=== PATIENT | male | born 1995 ===

== ENCOUNTER 2023-06-21 11:28 | Emergency (ER) | payer SELFPAY ==
[2023-06-21 11:34] VITALS: BP 132/100; PULSE 72; RESP 16; TEMP 37; O2SAT 99
[2023-06-21 11:41] VITALS: BP 132/100; PULSE 72; RESP 16; TEMP 37; O2SAT 99
--- NOTE | 2023-06-21 11:44 | ED.GENADUL_ITS ---
Discharge Plan Disposition Patient Disposition: Home Condition: Stable Discharge Details Clinical Impression: Elevated LFTs, Diarrhea, N&V (nausea and vomiting), Influenza B Primary Care Provider: None,None ED Provider: Raul Altamirano Home Meds and New Rx's Prescriptions: New ondansetron 4 mg tablet,disintegrating 4 mg PO Q8H PRN (Reason: nausea and vomiting) Qty: 30 0RF Discharge Instructions Additional Instructions: You are positive for the flu which explains your symptoms you are having. This resolves by itself without any treatment. You should follow-up with your primary care provider and have your liver function test rechecked. If you feel more ill, have persistent vomiting or severe abdominal pain return to the emergency department for evaluation HPI General Mode of arrival: ambulatory . Date/Time Provider Initiated Documentation: 06/21/23 11:32 . Limitations to Documentation: no limitations . Information obtained by: patient . History of Present Illness 28 year old M presents to the emergency department with the chief complaint of n/v/d, described as moderate, Patient started experiencing this day(s) (6) and it has been intermittent. No relieving factors improve symptom(s), No exacerbating factors reported . Patient notes denies chest pain and shortness of breath. Patient did receive the following treatments prior to arrival, none Related Data Home Medications Medication Instructions Recorded Confirmed ondansetron 4 mg disintegrating 4 mg PO Q8H PRN nausea and 06/21/23 tablet vomiting #30 tabs Previous Rx's Medication Instructions Recorded ondansetron 4 mg disintegrating 4 mg PO Q8H PRN nausea and 06/21/23 tablet vomiting #30 tabs Allergies Allergy/AdvReac Type Severity Reaction Status Date / Time No Known Allergies Allergy Unverified 06/21/23 11:34 General Stated Complaint: Abd Prob NITISH: 4 Review of Systems All systems reviewed & are unremarkable except as noted in HPI and below Constitutional Constitutional: Denies chills, Denies fever(s) and Denies weakness Cardiovascular Cardiovascular: Denies chest pain and Denies dyspnea Respiratory Respiratory: Denies cough and Denies dyspnea Gastrointestinal Gastrointestinal: Denies abdominal pain, Reports diarrhea, Reports nausea and Reports vomiting Musculoskeletal Musculoskeletal: Denies joint swelling Neurologic Neurologic: Denies weakness Exam Const General: no acute distress Orientation: alert HENMT Head: normal to inspection Ears: external ears normal General nose exam: external nose normal Mouth: moist mucous membranes Eyes General: appearance normal, both eyes and all related structures Neck Neck: normal visual inspection Resp Effort & Inspection: normal respiratory effort and able to speak in complete sentences Cardio Rate: regular rate GI Palpation: soft and nontender Skin General skin exam: no rashes or lesions noted Neuro General: patient alert and patient oriented x3 Extrem General: normal to inspection Psych Mental Status: mental status grossly normal Course Vital Signs Vital signs: Vital Signs Temperature 37.0 C 06/21/23 11:34 Pulse 72 06/21/23 11:34 Respiratory Rate 16 06/21/23 11:34 Blood Pressure 132/100 H 06/21/23 11:34 Pulse Oximetry 99 06/21/23 11:34 Temperature 37.0 C 06/21/23 11:41 Temperature Source Temporal Artery Scan 06/21/23 11:41 Pulse 72 06/21/23 11:41 Respiratory Rate 16 06/21/23 11:41 Respiratory Effort Normal, Non-Labored 06/21/23 11:39 Blood Pressure 132/100 H 06/21/23 11:41 Blood Pressure Position Sitting 06/21/23 11:41 Pulse Oximetry 99 06/21/23 11:41 Oxygen Delivery Method Room Air 06/21/23 11:41 Oxygen Flow Rate 0 06/21/23 11:41 Pain Level 0 06/21/23 11:41 Medical Decision Making 28-year-old male who denies any significant past medical history comes in with 6 days of diarrhea, chills, and nausea and vomiting. Denies any chest pain, difficulty breathing, abdominal pain, no recent travel or sick contacts. He is alert and oriented on arrival appears well and ambulating with a normal gait unassisted. He has a soft nontender abdomen. Denies any blood in his stools. Suspect gastroenteritis versus food illness or sensitivity, will check for electrolyte abnormalities and treat his symptoms with fluids and Zofran and reassess. Given lack of abdominal pain and no tenderness on exam do not feel any imaging at this time is indicated Labs show mild low white count, LFTs mildly elevated likely from a viral gastroenteritis, still has no abdominal pain and no right upper quadrant tenderness so do not feel any acute imaging of his gallbladder or liver indicated. Patient stable, is positive for the flu which fits with this presentation. He is stable for discharge, advised to follow-up with his primary care provider and return precautions given. Stool studies canceled given patient is positive for flu Differential Diagnosis Differential Diagnosis: Viral gastroenteritis, food illness Lab Data Lab results reviewed: Yes I reviewed the patient's lab results. Quality:SDOH Health Related Social Needs: No Data to Display PFSH All Active Problems (Updated 06/21/23 @ 13:15 by Raul Altamirano MD) Influenza B (Acute) N&V (nausea and vomiting) (Acute) Diarrhea (Acute) Elevated LFTs (Acute) Social History Smoking/Tobacco Use Status: Never Smoking risk assessment performed?: Yes Alcohol Intake: current Alcohol Intake frequency: holidays/special occasions only Alcohol type: beer Drug use: Never Substance use type: does not use Housing: apartment Do you feel safe at home: Yes Do you feel safe in your relationship?: Yes
[2023-06-21] MEDS: Normal Saline 1,000 ML 1000 ML IV (12:03)
[2023-06-21 12:08] LABS: Abs Immature Grans 0.02 10^3/uL (0.0-0.06); Absolute Basophil Count 0.04 10^3/uL (0.0-0.2); HGB 14.2 g/dL (13.5-17.5); MCH 31.4 pg (27.0-33.0); MCHC 33.8 % (32.0-36.0); MCV 93 fL (80-95); MPV 11.1 fL (8.0-11.0); Platelet Count 208 10^3/uL (130-400); RBC 4.52 10^6/uL (4.36-5.78); RDW 12.3 % (11.8-14.1); RDW-SD 42.3 fL; WBC 4.28 10^3/uL (4.4-10.8)
[2023-06-21] MEDS: Ondansetron 4 MG/2 ML VIAL IVP (12:09)
[2023-06-21 12:21] LABS: ALT 198 U/L (16-63); AST 173 U/L (15-37); Alkaline Phosphatase 98 U/L (46-116); Anion Gap 14.6 mmol/L (3-11); BUN 7 mg/dL (7-18); Bilirubin, Total 1.2 mg/dL (0.2-1.0); CO2 21.4 mmol/L (21.0-32.0); CREATININE 1.1 mg/dL (0.70-1.30); Calcium 9.2 mg/dL (8.5-10.1); Chloride 99 mmol/L (98-107); Estimated GFR 93.19 (mL/min/1.73m2); Glucose 113 mg/dL (74-106); Lipase 20 U/L (16-77); Magnesium 1.9 mg/dL (1.8-2.4); Potassium 4.2 mmol/L (3.5-5.1); Sodium 135 mmol/L (136-145); Total Protein 8.2 g/dL (6.4-8.2)
[2023-06-21 12:28] LABS: Absolute Eosinophil Count 0.04 10^3/uL (0.0-0.7); Absolute Monocyte Count 0.34 10^3/uL (0.1-0.8); Absolute Neutrophil Count 2.35 10^3/uL (1.2-6.7); Atypical Lymphocytes % 3; Diff Comment Manual Differential; RBC Morphology Normal
[2023-06-21 13:07] LABS: COVID-19 PCR Negative (Negative); Influenza A PCR Negative (Negative); Influenza B PCR Positive (Negative); RSV PCR Negative (Negative)
[2023-06-21 13:08] LABS: Source Nasopharynx
[2023-06-21 13:34] VITALS: BP 132/98; PULSE 62; RESP 13; O2SAT 100
[2023-06-23 12:05] LABS: Hepatitis A Antibody IgM Negative (Negative); Hepatitis B Core Antibody Negative (Negative); Hepatitis B surface Ag Negative (Negative); Hepatitis C Ab w Rflx HCV PCR Negative (Negative)
== END 2023-06-21 13:37 | disposition home or self-care (01) ==
PROVIDERS: Emergency Provider Emergency Medicine
DX: J10.1 Influenza due to other identified influenza virus with other respiratory manifestations (principal); R79.89 Other specified abnormal findings of blood chemistry; R19.7 Diarrhea, unspecified
CPT/HCPCS: 36415; 80053; 83690; 86704; 86709; 86803; 87340; 87637; 96361; 96374; 99284; 83735; 85025; J2405

== ENCOUNTER 2023-07-14 08:14 | Emergency (ER) | payer SELFPAY ==
[2023-07-14 08:17] VITALS: BP 147/82; PULSE 84; RESP 16; TEMP 36.6; O2SAT 100
--- NOTE | 2023-07-14 08:30 | W.ED.GENAD ---
Discharge Plan Disposition Patient Disposition: Home Condition: Good Discharge Details Clinical Impression: Herpes genitalis in men, Recurrent genital herpes Primary Care Provider: Unknown,Unknown ED Provider: Jayleen Yuan Home Meds and New Rx's Prescriptions: New valacyclovir 1 gram tablet 1,000 mg PO DAILY Qty: 30 0RF acyclovir 400 mg tablet 800 mg PO TID Qty: 30 0RF Rx Instructions: Please take two tabs three times daily for two days Continued ondansetron 4 mg tablet,disintegrating 4 mg PO Q8H PRN (Reason: nausea and vomiting) Qty: 30 0RF valacyclovir 500 mg tablet 500 mg PO BID valacyclovir 1 gram tablet 1,000 mg PO TID Discharge Instructions Instructions: Genital Herpes Simplex (ED) Additional Instructions: Your exam is most consistent with recurrent genital herpes outbreak. I prescribed you 2 different antivirals. Some of this is based off of coupons that was able to find, these are attached. Please take the acyclovir for the next 3 days as prescribed for your acute exacerbation. For chronic suppression, I am putting you back on your valacyclovir that you had previously been on. There is no need for you to take these medications together. Please only use the acyclovir during your outbreak and go back to the valacyclovir once this has been suppressed as prescribed. Please encourage hydration. Tylenol and ibuprofen as needed for discomfort. Please monitor for signs of infection including redness, warmth, drainage, increased pain, fever/chills. If you develop these or other new/worsening symptom please seek care urgently once again. Attached is Information for community connections, they will help you with insurance and local support options. They are located across the street, address and contact information on packet. I have also referred you to local primary care, you should hear from care management to establish care. 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 HPI General Date/Time Provider Initiated Documentation: 07/14/23 08:16. Limitations to Documentation: no limitations. Information obtained by: patient and RN notes reviewed. History of Present Illness 28 year old M presents to the emergency department with the chief complaint of recurrent genital herpes outbreak, described as moderate and similar to prior episodes, Quality is described as burning, and is localized to the genitals. Patient reports no radiation. Patient started experiencing this day(s) (2) and it has been constant. No relieving factors improve symptom(s), No exacerbating factors reported (ran out of suppression medication) . Patient notes no other symptoms.. Patient did receive the following treatments prior to arrival, none Related Data Home Medications Medication Instructions Recorded Confirmed ondansetron 4 mg disintegrating 4 mg PO Q8H PRN nausea and 06/21/23 07/14/23 tablet vomiting #30 tabs acyclovir 400 mg tablet 800 mg (2 x 400 mg) PO TID #30 tabs 07/14/23 valacyclovir 1 gram tablet 1,000 mg PO DAILY #30 tabs 07/14/23 valacyclovir 1 gram tablet 1,000 mg PO TID 07/14/23 07/14/23 valacyclovir 500 mg tablet 500 mg PO BID 07/14/23 07/14/23 Previous Rx's Medication Instructions Recorded ondansetron 4 mg disintegrating 4 mg PO Q8H PRN nausea and 06/21/23 tablet vomiting #30 tabs acyclovir 400 mg tablet 800 mg (2 x 400 mg) PO TID #30 tabs 07/14/23 valacyclovir 1 gram tablet 1,000 mg PO DAILY #30 tabs 07/14/23 Allergies Allergy/AdvReac Type Severity Reaction Status Date / Time No Known Allergies Allergy Unverified 07/14/23 08:19 General Stated Complaint: RX Refill NITISH: 5 Review of Systems Constitutional Constitutional: Reports as per HPI, Denies chills and Denies fever(s) Genitourinary Genitourinary: Reports as per HPI Musculoskeletal Musculoskeletal: Reports as per HPI Integumentary/Breasts Skin/Breast: Reports as per HPI Exam Const General: cooperative, healthy appearing, comfortable, no acute distress and well developed Nutritional Appearance: average body habitus and well nourished Orientation: alert and awake Resp Effort & Inspection: normal respiratory effort, able to speak in complete sentences and no respiratory distress Cardio Rate: regular rate Rhythm: regular rhythm Male genitals images: 1. Area of clustered herpetic lesions. No surrounding erythema, warmth, drainage. No other lesions noted. uncircumcised. Skin Lesions: lesion noted (herpetic lesions noted right side of penis) Neuro General: patient alert and patient awake Cognition: normal cognition Speech: speech normal Gait: normal gait Psych Appearance: grossly normal and well kempt Mental Status: mental status grossly normal Speech and Movement: speech and movement normal Course Vital Signs Vital signs: Vital Signs Temperature 36.6 C 07/14/23 08:17 Pulse 84 07/14/23 08:17 Respiratory Rate 16 07/14/23 08:17 Blood Pressure 147/82 H 07/14/23 08:17 Pulse Oximetry 100 07/14/23 08:17 Temperature 36.6 C 07/14/23 08:17 Temperature Source Skin 07/14/23 08:17 Pulse 84 07/14/23 08:17 Respiratory Rate 16 07/14/23 08:17 Respiratory Effort Normal, Non-Labored 07/14/23 08:21 Blood Pressure 147/82 H 07/14/23 08:17 Blood Pressure Position Sitting 07/14/23 08:17 Pulse Oximetry 100 07/14/23 08:17 Oxygen Delivery Method Room Air 07/14/23 08:17 Oxygen Flow Rate 0 07/14/23 08:17 Pain Level 8 07/14/23 08:17 Medical Decision Making Patient is a pleasant 28-year-old male presenting today with chief complaint of recurrent genital herpes. He has had this for several years, was previously prescribed valacyclovir for suppression therapy. He recently ran out of this. Patient is new to the area, moved here about a month ago from [place]. Has not yet established local primary care, does not have insurance currently. He reports that a few days ago he began having a recurrent outbreak. States that it has the same appearance and feel as previous outbreaks. He is concerned that he will continue to have these. He denies any fevers or chills. No discharge. No change in bowel or bladder habits. Denies any pain elsewhere. Otherwise feeling well. On exam, patient appears nontoxic. Resting comfortably no acute distress. He has a small cluster of herpetic lesions on the right side of his retracted foreskin. Otherwise, exam is normal. Was able to use good Rx and find coupons for the patient. What I can see, the most financially advantageous way to help with his desciclovir for the acute outbreak followed by valacyclovir for chronic suppression. To 2 prescriptions were given to the patient. We did discuss this at length and that he will not take both medications together. We have also referred him to local primary care. I also gave him information on community connections and he will be going there today to get local assistance and see what can be done about health insurance. Return precautions were discussed. All of his questions and concerns were addressed and he is in agreement with this plan. Quality:SDOH Health Related Social Needs: Health related social needs risk of homeless PFSH All Active Problems (Updated 07/14/23 @ 08:36 by JARED Arshad) Recurrent genital herpes (Acute) Herpes genitalis in men (Acute) Influenza B (Acute) N&V (nausea and vomiting) (Acute) Diarrhea (Acute) Elevated LFTs (Acute) Social History Smoking/Tobacco Use Status: Never Smoking risk assessment performed?: Yes Alcohol Intake: current Alcohol Intake frequency: holidays/special occasions only Alcohol type: beer Drug use: Never Substance use type: does not use Housing: apartment Do you feel safe at home: Yes Do you feel safe in your relationship?: Yes
--- NOTE | 2023-07-14 08:33 | NUR.NOTE ---
Referral given to [employer] for help with establishing a Primary Care Provider and to follow up with an outbreak within the week.
== END 2023-07-14 08:48 | disposition home or self-care (01) ==
LOC: ER 08:46
PROVIDERS: Emergency Provider Physician Assistant
DX: A60.00 Herpesviral infection of urogenital system, unspecified (principal)
CPT/HCPCS: 99283